=== PATIENT | male | born 1965 | race Caucasian/White ===

== ENCOUNTER 2019-10-19 02:47 | Inpatient (IN) ==
[2019-10-19 02:56] VITALS: BMI 33.0
--- NOTE | 2019-10-19 03:07 | DR.SOBA ---
HPI Time Seen Time Seen by Provider: 10/19/19 03:02 Primary Care Physician Primary Care Physician: Zane Goodman NP GPS HPI Comment HPI Comment: As below; he stopped his meds and just started back on Tuesday after going to Zane Goodman NP but is not on a diuretic; has h/o chf; occasional palpitations no cp. Complaints Chief Complaint:: [facility] DISPATCHED OUT TO PATIENT FOR DIFFICUTY BREATHING . PATIENT STATES " IT HAS BEEN GOING ON FOR 2WEEKS NOW THAT WHEN I LAY DOWN I FEEL LIKE IM DROWNING AND LOOSE MY BREATH. I HAVE TO GET UP AND MOVE AROUND TO CATCH MY BREATH." Reviewed Nurses Notes Reviewed: Yes Source History Provided: Patient and EMS Mode of Arrival Mode of Arrival: EMS Timing Onset of Chief Complaint: 10/05/19 PMH PMH Past Medical History: Yes Past Medical History: CHF, CVA and [place] Past Medical History Comment: DEFIB Past Surgical History: Yes Surgical History: Angioplasty/Stents and Ortho Surgery Family History History of Family Medical Conditions: No Social History Alcohol Use: None Do you use any recreational Drugs:: Yes (THC) Lives Where: Home infectious screening Have you traveled outside the country in the last 6 months?: No ROS Review of Systems Constitutional: See HPI, Malaise and Fatigue Eyes: No Symptoms Reported ENTM: No Symptoms Reported Respiratoy: See HPI (no cough or wheezing) Cardiovascular: See HPI and Palpitations Gastrointestinal/Abdominal: No Symptoms Reported Neurological: No Symptoms Reported Musculoskeletal: No Symptoms Reported Integumentary: No Symptoms Reported and Bruises Hematologic/Lymphatic: No Symptoms Reported Endocrine: No Symptoms Reported PE Vital Signs Vitals: Temperature 97.8 F Pulse Rate 92 Respiratory Rate 20 Blood Pressure 122/78 O2 Sat by Pulse Oximetry 99 General Limitations: No Limitations General Appearance: Alert, Anxious and Obese Head Head Exam: Normal Inspection and Atraumatic Eyes Eye exam: Normal Appearance Neck Neck Exam: Normal Inspection, Full ROM and Trachea Midline Chest Chest Inspection: Normal Inspection and Symmetric Chest Wall Rise Respiratory Respiratory Exam: Bilateral: Clear to Auscultation and Bilateral: Decreased Breath Sounds Cardiovascular Cardiovascular Exam: Regular Rate and Normal Rhythm Abdominal Exam Abdominal Exam: Normal Inspection, Normal Bowel Sounds and Soft Extremities Extremities Exam: Normal Inspection and Full ROM Back Back Exam: Normal Inspection and Full ROM Neurologic Neurological Exam: Alert, Oriented X3 and CN II-XII Intact Skin Skin Exam: Warm and Dry COURSE Reevaluation 1st: Unchanged (sitting up, sleepy) Consultation Called: 04:10 (s/w Dr Santana who accepts pt) ROR Labs Reviewed Laboratory Results Reviewed?: Yes Result Diagrams: 10/19/19 03:18 10/19/19 03:18 Laboratory: WBC 6.6 X10^3/uL (3.6-10.0) 10/19/19 03:18 RBC 4.54 X10^6/uL (4.7-6.0) L 10/19/19 03:18 Hgb 13.7 g/dL (13.5-18.0) 10/19/19 03:18 Hct 40.9 % (42.0-54.0) L 10/19/19 03:18 MCV 90.2 fL (80.0-100.0) 10/19/19 03:18 MCH 30.1 pg (27.0-34.0) 10/19/19 03:18 MCHC 33.4 g/dL (33.0-35.0) 10/19/19 03:18 RDW 14.6 % (11.6-16.5) 10/19/19 03:18 Plt Count 405 X10^3/uL (150.0-450.0) 10/19/19 03:18 MPV 7.2 fL (7.4-11.0) L 10/19/19 03:18 Neut % (Auto) 69.0 % (42.0-75.0) 10/19/19 03:18 Lymph % (Auto) 19.4 % (21.0-51.0) L 10/19/19 03:18 [place] % (Auto) 6.5 % (0.0-13.0) 10/19/19 03:18 Eos % (Auto) 2.3 % (0.9-2.9) 10/19/19 03:18 Baso % (Auto) 2.8 % (0.2-1.0) H 10/19/19 03:18 Neut # (Auto) 4.5 x10^3/uL (2.2-4.8) 10/19/19 03:18 Lymph # (Auto) 1.3 X10^3/uL (1.3-2.9) 10/19/19 03:18 [place] # (Auto) 0.4 x10^3/uL (0.3-0.8) 10/19/19 03:18 Eos # (Auto) 0.1 x10^3/uL (0.0-0.2) 10/19/19 03:18 Baso # (Auto) 0.2 X10^3/uL (0.0-0.1) H 10/19/19 03:18 Absolute Nucleated RBC 0.2 /100WBC 10/19/19 03:18 Sodium 136 mmol/L (136-145) 10/19/19 03:18 Corrected Sodium 136 mmol/L (136-145) 10/19/19 03:18 Potassium 4.2 mmol/L (3.5-5.1) 10/19/19 03:18 Chloride 105 mmol/L (98-107) 10/19/19 03:18 Carbon Dioxide 19.7 mmol/L (21-32) L 10/19/19 03:18 BUN 26 mg/dL (7-18) H 10/19/19 03:18 Creatinine 1.48 mg/dL (0.70-1.30) H 10/19/19 03:18 Est GFR (MDRD) Af Amer > 60 (>60) 10/19/19 03:18 Est GFR (MDRD) Non-Af 52 (>60) L 10/19/19 03:18 Glucose 118 mg/dL (65-99) H 10/19/19 03:18 Calcium 8.4 mg/dL (8.5-10.1) L 10/19/19 03:18 Corrected Calcium TNP 10/19/19 03:18 Total Bilirubin 0.80 mg/dL (0.2-1.0) 10/19/19 03:18 AST 26 Units/L (15-37) 10/19/19 03:18 ALT 24 Units/L (12-78) 10/19/19 03:18 Alkaline Phosphatase 81 Units/L (46-116) 10/19/19 03:18 Creatine Kinase 147 Units/L (39-308) 10/19/19 03:18 CK-MB (CK-2) 3.0 ng/mL (0-4.0) 10/19/19 03:18 CK/CKMB % Calc 2.0 % (<4) 10/19/19 03:18 Troponin I 0.07 ng/mL (0-1.5) 10/19/19 03:18 B-Natriuretic Peptide 1900 pg/mL (0-79) H* 10/19/19 03:18 Total Protein 7.4 g/dL (6.4-8.2) 10/19/19 03:18 Albumin 3.4 g/dL (3.4-5.0) 10/19/19 03:18 Globulin 4.0 g/dL (2.5-4.5) 10/19/19 03:18 Albumin/Globulin Ratio 0.9 Ratio (1.1-2.1) L 10/19/19 03:18 Other Results Comments: chf,cardiomegaly XRAY XRAY Interpreted by: Self Opioid Opioid Risk Tool Total: 0 Total Score Risk Category: Low Risk Copyright: Reyez predicting aberrant behaviors Diagnosis Discharge Problem: Acute dyspnea CHF (congestive heart failure) Qualifiers: Heart failure type: unspecified Heart failure chronicity: unspecified Qualified Code(s): I50.9 - Heart failure, unspecified CAD (coronary artery disease) Qualifiers: Coronary Disease-Associated Artery/Lesion type: [place] artery [place] vs. transplanted heart: [place] heart Associated angina: without angina Qualified Code(s): I25.10 - Atherosclerotic heart disease of [place] coronary artery without angina pectoris Renal failure Qualifiers: Renal failure chronicity: unspecified chronicity Qualified Code(s): N19 - Unspecified kidney failure Instructions Instructions: Heart Failure, [id number] Forms: Excuse From Work Patient Portal
[2019-10-19 03:26] LABS: BASOPHILS # (AUTO) 0.2 X10^3/uL (0.0-0.1); BASOPHILS % (AUTO) 2.8 % (0.2-1.0); EOSINOPHILS # (AUTO) 0.1 x10^3/uL (0.0-0.2); EOSINOPHILS % (AUTO) 2.3 % (0.9-2.9); HEMATOCRIT 40.9 % (42.0-54.0); HEMOGLOBIN 13.7 g/dL (13.5-18.0); LYMPHOCYTES # (AUTO) 1.3 X10^3/uL (1.3-2.9); LYMPHOCYTES % (AUTO) 19.4 % (21.0-51.0); MEAN CORPUSCULAR HEMOGLOBIN 30.1 pg (27.0-34.0); MEAN CORPUSCULAR HGB CONC 33.4 g/dL (33.0-35.0); MEAN CORPUSCULAR VOLUME 90.2 fL (80.0-100.0); MEAN PLATELET VOLUME 7.2 fL (7.4-11.0); MONOCYTES # (AUTO) 0.4 x10^3/uL (0.3-0.8); MONOCYTES % (AUTO) 6.5 % (0.0-13.0); NEUTROPHILS # (AUTO) 4.5 x10^3/uL (2.2-4.8); PLATELET COUNT 405 X10^3/uL (150.0-450.0); RED BLOOD COUNT 4.54 X10^6/uL (4.7-6.0); RED CELL DISTRIBUTION WIDTH 14.6 % (11.6-16.5); WHITE BLOOD COUNT 6.6 X10^3/uL (3.6-10.0)
[2019-10-19] MEDS ORDERED: LASIX IVP ONE ×4 (03:32→04:10)
[2019-10-19 03:41] LABS: BLOOD UREA NITROGEN 26 mg/dL (7-18); CALCIUM 8.4 mg/dL (8.5-10.1); CARBON DIOXIDE 19.7 mmol/L (21-32); CHLORIDE 105 mmol/L (98-107); COR NA(FOR HYPERGLY) 136 mmol/L (136-145); CREATININE 1.48 mg/dL (0.70-1.30); SODIUM 136 mmol/L (136-145); TROPONIN I 0.07 ng/mL (0-1.5); eGFR NON BLACK RACES 52 (>60)
[2019-10-19 03:46] LABS: ALANINE AMINOTRANSFERASE 24 Units/L (12-78); ALBUMIN 3.4 g/dL (3.4-5.0); ALKALINE PHOSPHATASE 81 Units/L (46-116); ASPARTATE AMINO TRANSFERASE 26 Units/L (15-37); CREATINE KINASE 147 Units/L (39-308); TOTAL PROTEIN 7.4 g/dL (6.4-8.2)
[2019-10-19] MEDS ORDERED: ZOFRAN INJ 4 MG VIAL IVP PRN (04:16)
[2019-10-19] MEDS ORDERED: TYLENOL 500 MG TAB EXTRA STRENGTH PO PRN (04:16)
--- NOTE | 2019-10-19 05:40 | RAD ---
STUDY: FRONTAL VIEW CHESTCOMPARISON: NoneHISTORY: SOBFINDINGS:Transvenous pacing wires are noted without evidence of lead wire fractures.No focal consolidation is seen.The heart size is enlarged with moderate degree of pulmonary edemaThe mediastinum is unremarkable.There is no evidence of pleural effusion or gross pneumothorax.Trachea is midline.IMPRESSION:1. NO FOCAL CONSOLIDATION SEEN.2. THE HEART SIZE IS ENLARGED WITH A MODERATE DEGREE OF PULMONARY EDEMA. CORRELATION WITH PATIENT BNP LEVELS MAY BE HELPFUL.Electronically signed by: Nato Wyatt (Oct 19, 2019 05:38:45)
[2019-10-19 08:29] LABS: BILIRUBIN,URINE NEGATIVE (NEGATIVE); BLOOD/HEMOGLOBIN,URINE NEGATIVE (NEGATIVE); GLUCOSE, URINE NEGATIVE (NEGATIVE); KETONES,URINE NEGATIVE (NEGATIVE); LEUKOCYTE ESTERASE ,URINE 1+ (NEGATIVE); NITRITES,URINE NEGATIVE (NEGATIVE); PROTEIN,URINE NEGATIVE (NEGATIVE); UROBILINOGEN,URINE NORMAL (NORMAL)
[2019-10-19 08:32] LABS: APPEARANCE,URINE CLEAR (CLEAR); COLOR,URINE YELLOW (YELLOW)
[2019-10-19 08:36] LABS: RBC,URINE NONE SEEN /HPF (0-3); SQUAMOUS EPITHELIAL CELL,UR RARE /HPF (NEGATIVE)
[2019-10-19 08:37] LABS: BACTERIA,URINE NEGATIVE /HPF (NEGATIVE)
[2019-10-19] MEDS ORDERED: LASIX IVP SCH (09:00)
[2019-10-19 09:08] LABS: CREATINE KINASE MB 3.4 ng/mL (0-4.0); TROPONIN I 0.05 ng/mL (0-1.5)
[2019-10-19] MEDS: ENTRESTO 24/26 MG TAB PO SCH ×2 (09:52→20:31)
[2019-10-19] MEDS: COREG TAB 6.25 MG PO SCH ×2 (09:52→20:31)
--- NOTE | 2019-10-19 10:49 | DR.H&P ---
H&P History & Physical for Day of: H&P Date: 10/19/19 Chief Complaint Chief Complaint: SOB Allergies Allergies Allergy/AdvReac Type Severity Reaction Status Date / Time No Known Drug Allergies Allergy Verified 10/19/19 02:52 History of Present Illness History of Present Illness: Mr. Mauricio is a 54y/o male with a PMH of CAD s/p PCI, CHF and HTN presents with worsening SOB for the last 2 weeks. He states he has not been on his medications until this past Tu. He was not taking any diuretics. He states his SOB has been worsening and it got really bad yesterday. He denies chest pain, N/V/D or abdominal pain. He was seeing finance clerk but has not in over a year. ED work-up: CXR: concerning for moderate pulmonary edema Received IV Lasix 40 mg x 2 Labs: Cr: 1.48, BNP: 1900 Trop: 0.07 Past Medical History Past Medical History: CHF, CVA and [place] Past Surgical History Surgical History: Angioplasty/Stents and Ortho Surgery Family History Family Medical History: Hypertension Social History Does patient currently use any type of tobacco product: Yes Have you used tobacco products in the last 12 months: Yes Type of Tobacco Use: Cigarettes Alcohol Use: None Drug Use: Marijuana Medications Home Medications: No Known Drug Allergies Allergy (Verified 10/19/19 02:52) CONTINUE taking the following medications atorvastatin 20 mg PO QHS 10/19/19 [History] carvedilol 6.25 mg PO BID 10/19/19 [History] prasugrel 10 mg PO HS 10/19/19 [History] sacubitril-valsartan [Entresto] 1 tab PO BID 10/19/19 [History] Labs Result Diagrams: 10/19/19 03:18 10/19/19 03:18 Labs: Laboratory WBC 6.6 X10^3/uL (3.6-10.0) 10/19/19 03:18 RBC 4.54 X10^6/uL (4.7-6.0) L 10/19/19 03:18 Hgb 13.7 g/dL (13.5-18.0) 10/19/19 03:18 Hct 40.9 % (42.0-54.0) L 10/19/19 03:18 MCV 90.2 fL (80.0-100.0) 10/19/19 03:18 MCH 30.1 pg (27.0-34.0) 10/19/19 03:18 MCHC 33.4 g/dL (33.0-35.0) 10/19/19 03:18 RDW 14.6 % (11.6-16.5) 10/19/19 03:18 Plt Count 405 X10^3/uL (150.0-450.0) 10/19/19 03:18 MPV 7.2 fL (7.4-11.0) L 10/19/19 03:18 Neut % (Auto) 69.0 % (42.0-75.0) 10/19/19 03:18 Lymph % (Auto) 19.4 % (21.0-51.0) L 10/19/19 03:18 [place] % (Auto) 6.5 % (0.0-13.0) 10/19/19 03:18 Eos % (Auto) 2.3 % (0.9-2.9) 10/19/19 03:18 Baso % (Auto) 2.8 % (0.2-1.0) H 10/19/19 03:18 Neut # (Auto) 4.5 x10^3/uL (2.2-4.8) 10/19/19 03:18 Lymph # (Auto) 1.3 X10^3/uL (1.3-2.9) 10/19/19 03:18 [place] # (Auto) 0.4 x10^3/uL (0.3-0.8) 10/19/19 03:18 Eos # (Auto) 0.1 x10^3/uL (0.0-0.2) 10/19/19 03:18 Baso # (Auto) 0.2 X10^3/uL (0.0-0.1) H 10/19/19 03:18 Absolute Nucleated RBC 0.2 /100WBC 10/19/19 03:18 Sodium 136 mmol/L (136-145) 10/19/19 03:18 Corrected Sodium 136 mmol/L (136-145) 10/19/19 03:18 Potassium 4.2 mmol/L (3.5-5.1) 10/19/19 03:18 Chloride 105 mmol/L (98-107) 10/19/19 03:18 Carbon Dioxide 19.7 mmol/L (21-32) L 10/19/19 03:18 BUN 26 mg/dL (7-18) H 10/19/19 03:18 Creatinine 1.48 mg/dL (0.70-1.30) H 10/19/19 03:18 Est GFR (MDRD) Af Amer > 60 (>60) 10/19/19 03:18 Est GFR (MDRD) Non-Af 52 (>60) L 10/19/19 03:18 Glucose 118 mg/dL (65-99) H 10/19/19 03:18 Calcium 8.4 mg/dL (8.5-10.1) L 10/19/19 03:18 Corrected Calcium TNP 10/19/19 03:18 Total Bilirubin 0.80 mg/dL (0.2-1.0) 10/19/19 03:18 AST 26 Units/L (15-37) 10/19/19 03:18 ALT 24 Units/L (12-78) 10/19/19 03:18 Alkaline Phosphatase 81 Units/L (46-116) 10/19/19 03:18 Creatine Kinase 171 Units/L (39-308) 10/19/19 08:08 CK-MB (CK-2) 3.4 ng/mL (0-4.0) 10/19/19 08:08 CK/CKMB % Calc 2.0 % (<4) 10/19/19 08:08 Troponin I 0.05 ng/mL (0-1.5) 10/19/19 08:08 B-Natriuretic Peptide 1900 pg/mL (0-79) H* 10/19/19 03:18 Total Protein 7.4 g/dL (6.4-8.2) 10/19/19 03:18 Albumin 3.4 g/dL (3.4-5.0) 10/19/19 03:18 Globulin 4.0 g/dL (2.5-4.5) 10/19/19 03:18 Albumin/Globulin Ratio 0.9 Ratio (1.1-2.1) L 10/19/19 03:18 Specimen Type Clean catch urine 10/19/19 08:05 Urine Color Yellow (YELLOW) 10/19/19 08:05 Urine Appearance Clear (CLEAR) 10/19/19 08:05 Urine pH 6.0 (5.0 - 8.0) 10/19/19 08:05 Ur Specific [place] 1.010 (1.000-1.030) 10/19/19 08:05 Urine Protein Negative (NEGATIVE) 10/19/19 08:05 Urine Glucose (UA) Negative (NEGATIVE) 10/19/19 08:05 Urine Ketones Negative (NEGATIVE) 10/19/19 08:05 Urine Occult Blood Negative (NEGATIVE) 10/19/19 08:05 Urine Nitrite Negative (NEGATIVE) 10/19/19 08:05 Urine Bilirubin Negative (NEGATIVE) 10/19/19 08:05 Urine Urobilinogen Normal (NORMAL) 10/19/19 08:05 Ur Leukocyte Esterase 1+ (NEGATIVE) 10/19/19 08:05 Urine RBC None seen /HPF (0-3) 10/19/19 08:05 Urine WBC 0-2 /HPF (0-5) 10/19/19 08:05 Ur Squamous Epith Cells Rare /HPF (NEGATIVE) 10/19/19 08:05 Urine Bacteria Negative /HPF (NEGATIVE) 10/19/19 08:05 Ur Culture Indicated? No/not indicated 10/19/19 08:05 Review of Systems Constitutional: No Symptoms Reported Eyes: No Symptoms Reported ENT: No Symptoms Reported Respiratory: Shortness of Breath and SOB with Excertion Cardiovascular: Orthopnea and Edema Gastrointestinal: No Symptoms Reported Genitourinary: No Symptoms Reported Musculoskeletal: No Symptoms Reported Skin: No Symptoms Reported Neurological: No Symptoms Reported Physical Exam Vital Signs: Temperature 97.5 F Pulse Rate [Brachial] 78 Pulse Rate 92 Respiratory Rate 22 Blood Pressure [Right Arm] 133/95 Blood Pressure 122/78 O2 Sat by Pulse Oximetry 100 Oriented: Normal Eyes: Normal Throat: Normal Respiratory: RLL Rales and LLL Rales Cardiovascular: Normal and Edema (slight LE edema ) Auscultation: Bowel Sounds: Normal Palpation: Normal Tenderness: Normal Skin: Normal Musculoskeletal: Normal Psychiatric: Normal Mood Description: Calm Affect: Flat Speech Pattern: Clear and Appropriate Assessment/Plan (1) Acute exacerbation of CHF (congestive heart failure): Qualifiers: Heart failure type: unspecified Qualified Code(s): I50.9 - Heart failure, unspecified Status: Acute Plan: Dyspnea, CXR concerning for pulmonary edema, BNP elevated Continue telemetry Continue IV Lasix Echo pending Strict I/Os Continue prasugrel, statin, coreg, entresto (2) CAD (coronary artery disease): Qualifiers: Associated angina: without angina Coronary Disease-Associated Artery/Lesion type: [place] artery [place] vs. transplanted heart: [place] heart Qualified Code(s): I25.10 - Atherosclerotic heart disease of [place] coronary ar [place] without angina pectoris Status: Acute Plan: PCI in 2014 Continue home medications Trop: 0.07, 0.05, one more set pending (3) SAWYER (acute kidney injury): Status: Acute Plan: Cr: 1.48 Monitor AM labs (4) HTN (hypertension): Status: Acute Plan: Continue home medications Review H&P Reviewed: Yes Patient was examined?: Yes
[2019-10-19] MEDS: LOVENOX INJ 40 MG SYR SC SCH (12:57)
[2019-10-19] MEDS: LIPITOR TAB 20 MG PO SCH ×2 (12:57→20:32)
[2019-10-19 15:21] LABS: CKMB % 2.4 % (<4); CREATINE KINASE MB 3.4 ng/mL (0-4.0); TROPONIN I 0.07 ng/mL (0-1.5)
[2019-10-19] MEDS ORDERED: PRASUGREL 10 MG PO SCH (21:00)
[2019-10-20 06:51] LABS: BASOPHILS # (AUTO) 0.2 X10^3/uL (0.0-0.1); BASOPHILS % (AUTO) 2.7 % (0.2-1.0); EOSINOPHILS # (AUTO) 0.2 x10^3/uL (0.0-0.2); EOSINOPHILS % (AUTO) 3.7 % (0.9-2.9); HEMATOCRIT 42.1 % (42.0-54.0); LYMPHOCYTES # (AUTO) 1.6 X10^3/uL (1.3-2.9); LYMPHOCYTES % (AUTO) 24.1 % (21.0-51.0); MEAN CORPUSCULAR HEMOGLOBIN 30.2 pg (27.0-34.0); MEAN CORPUSCULAR HGB CONC 33.3 g/dL (33.0-35.0); MEAN CORPUSCULAR VOLUME 90.5 fL (80.0-100.0); MEAN PLATELET VOLUME 7.5 fL (7.4-11.0); MONOCYTES # (AUTO) 0.6 x10^3/uL (0.3-0.8); MONOCYTES % (AUTO) 9.6 % (0.0-13.0); NEUTROPHILS # (AUTO) 3.9 x10^3/uL (2.2-4.8); NEUTROPHILS % (AUTO) 59.9 % (42.0-75.0); PLATELET COUNT 400 X10^3/uL (150.0-450.0); RED BLOOD COUNT 4.65 X10^6/uL (4.7-6.0); WHITE BLOOD COUNT 6.5 X10^3/uL (3.6-10.0)
[2019-10-20 07:07] LABS: ALANINE AMINOTRANSFERASE 23 Units/L (12-78); ALBUMIN 3.3 g/dL (3.4-5.0); ALKALINE PHOSPHATASE 76 Units/L (46-116); ASPARTATE AMINO TRANSFERASE 21 Units/L (15-37); BLOOD UREA NITROGEN 23 mg/dL (7-18); CALCIUM 8.6 mg/dL (8.5-10.1); CARBON DIOXIDE 26.7 mmol/L (21-32); CHLORIDE 103 mmol/L (98-107); COR CA(FOR HYPOALB) 9.2 mg/dL (8.5-10.1); SODIUM 139 mmol/L (136-145); TOTAL PROTEIN 7.3 g/dL (6.4-8.2); eGFR NON BLACK RACES 56 (>60)
[2019-10-20] MEDS ORDERED: LASIX IVP SCH (09:00)
[2019-10-20] MEDS: ENTRESTO 24/26 MG TAB PO SCH (09:04)
[2019-10-20] MEDS: LOVENOX INJ 40 MG SYR SC SCH (09:04)
[2019-10-20] MEDS: COREG TAB 6.25 MG PO SCH (09:04)
--- NOTE | 2019-10-20 09:18 | PCM.PROG ---
Progress Note Progress Note for Day of Date of Exam: 10/20/19 Past Medical Family Social History Past Med/Fam/Surg Hx: No changes since H&P Allergies: Allergies No Known Drug Allergies Allergy (Verified 10/19/19 02:52) Review of Systems ROS: No change since H&P Vital Signs and I&O's Vital Signs: Temperature 98.0 F Pulse Rate [Brachial] 61 Pulse Rate 92 Respiratory Rate 15 Blood Pressure [Right Arm] 105/65 Blood Pressure 122/78 O2 Sat by Pulse Oximetry 96 Intake and Output: Intake & Output 10/17/19 10/18/19 10/19/19 10/20/19 23:59 23:59 23:59 23:59 Intake Total 2340 / 2340 450 / 450 Output Total 6375 / 6375 1450 / 1450 Balance -4035 / -4035 -1000 / -1000 Physical Exam Oriented: Normal Eyes: Normal Throat: Normal Respiratory: Rales Cardiovascular: Normal and Edema (slight LE edema ) Auscultation: Bowel Sounds: Normal Tenderness: Normal Skin: Normal Musculoskeletal: Normal Psychiatric: Normal Mood Description: Calm Affect: Flat Speech Pattern: Appropriate and Unclear Laboratory and Diagnostics Result Diagrams: 10/20/19 06:13 10/20/19 06:13 Labs: Laboratory WBC 6.5 X10^3/uL (3.6-10.0) 10/20/19 06:13 RBC 4.65 X10^6/uL (4.7-6.0) L 10/20/19 06:13 Hgb 14.0 g/dL (13.5-18.0) 10/20/19 06:13 Hct 42.1 % (42.0-54.0) 10/20/19 06:13 MCV 90.5 fL (80.0-100.0) 10/20/19 06:13 MCH 30.2 pg (27.0-34.0) 10/20/19 06:13 MCHC 33.3 g/dL (33.0-35.0) 10/20/19 06:13 RDW 15.0 % (11.6-16.5) 10/20/19 06:13 Plt Count 400 X10^3/uL (150.0-450.0) 10/20/19 06:13 MPV 7.5 fL (7.4-11.0) 10/20/19 06:13 Neut % (Auto) 59.9 % (42.0-75.0) 10/20/19 06:13 Lymph % (Auto) 24.1 % (21.0-51.0) 10/20/19 06:13 [place] % (Auto) 9.6 % (0.0-13.0) 10/20/19 06:13 Eos % (Auto) 3.7 % (0.9-2.9) H 10/20/19 06:13 Baso % (Auto) 2.7 % (0.2-1.0) H 10/20/19 06:13 Neut # (Auto) 3.9 x10^3/uL (2.2-4.8) 10/20/19 06:13 Lymph # (Auto) 1.6 X10^3/uL (1.3-2.9) 10/20/19 06:13 [place] # (Auto) 0.6 x10^3/uL (0.3-0.8) 10/20/19 06:13 Eos # (Auto) 0.2 x10^3/uL (0.0-0.2) 10/20/19 06:13 Baso # (Auto) 0.2 X10^3/uL (0.0-0.1) H 10/20/19 06:13 Absolute Nucleated RBC 0.1 /100WBC 10/20/19 06:13 Sodium 139 mmol/L (136-145) 10/20/19 06:13 Corrected Sodium TNP 10/20/19 06:13 Potassium 3.9 mmol/L (3.5-5.1) 10/20/19 06:13 Chloride 103 mmol/L (98-107) 10/20/19 06:13 Carbon Dioxide 26.7 mmol/L (21-32) 10/20/19 06:13 BUN 23 mg/dL (7-18) H 10/20/19 06:13 Creatinine 1.40 mg/dL (0.70-1.30) H 10/20/19 06:13 Est GFR (MDRD) Af Amer > 60 (>60) 10/20/19 06:13 Est GFR (MDRD) Non-Af 56 (>60) L 10/20/19 06:13 Glucose 99 mg/dL (65-99) 10/20/19 06:13 Calcium 8.6 mg/dL (8.5-10.1) 10/20/19 06:13 Corrected Calcium 9.2 mg/dL (8.5-10.1) 10/20/19 06:13 Total Bilirubin 1.10 mg/dL (0.2-1.0) H 10/20/19 06:13 AST 21 Units/L (15-37) 10/20/19 06:13 ALT 23 Units/L (12-78) 10/20/19 06:13 Alkaline Phosphatase 76 Units/L (46-116) 10/20/19 06:13 Creatine Kinase 141 Units/L (39-308) 10/19/19 14:15 CK-MB (CK-2) 3.4 ng/mL (0-4.0) 10/19/19 14:15 CK/CKMB % Calc 2.4 % (<4) 10/19/19 14:15 Troponin I 0.07 ng/mL (0-1.5) 10/19/19 14:15 B-Natriuretic Peptide 1900 pg/mL (0-79) H* 10/19/19 03:18 Total Protein 7.3 g/dL (6.4-8.2) 10/20/19 06:13 Albumin 3.3 g/dL (3.4-5.0) L 10/20/19 06:13 Globulin 4.0 g/dL (2.5-4.5) 10/20/19 06:13 Albumin/Globulin Ratio 0.8 Ratio (1.1-2.1) L 10/20/19 06:13 Specimen Type Clean catch urine 10/19/19 08:05 Urine Color Yellow (YELLOW) 10/19/19 08:05 Urine Appearance Clear (CLEAR) 10/19/19 08:05 Urine pH 6.0 (5.0 - 8.0) 10/19/19 08:05 Ur Specific [place] 1.010 (1.000-1.030) 10/19/19 08:05 Urine Protein Negative (NEGATIVE) 10/19/19 08:05 Urine Glucose (UA) Negative (NEGATIVE) 10/19/19 08:05 Urine Ketones Negative (NEGATIVE) 10/19/19 08:05 Urine Occult Blood Negative (NEGATIVE) 10/19/19 08:05 Urine Nitrite Negative (NEGATIVE) 10/19/19 08:05 Urine Bilirubin Negative (NEGATIVE) 10/19/19 08:05 Urine Urobilinogen Normal (NORMAL) 10/19/19 08:05 Ur Leukocyte Esterase 1+ (NEGATIVE) 10/19/19 08:05 Urine RBC None seen /HPF (0-3) 10/19/19 08:05 Urine WBC 0-2 /HPF (0-5) 10/19/19 08:05 Ur Squamous Epith Cells Rare /HPF (NEGATIVE) 10/19/19 08:05 Urine Bacteria Negative /HPF (NEGATIVE) 10/19/19 08:05 Ur Culture Indicated? No/not indicated 10/19/19 08:05 Plan (1) Acute exacerbation of CHF (congestive heart failure): Status: Acute Qualifiers: Heart failure type: unspecified Qualified Code(s): I50.9 - Heart failure, unspecified Plan: Dyspnea, CXR concerning for pulmonary edema, BNP elevated Continue telemetry Continue IV Lasix Echo: dilated cardiomyopathy, decreased global wall motion, EF 24%, mod-severe pulm HTN Strict I/Os Continue prasugrel, statin, coreg, entresto. Will consider adding low-dose aldactone if BP stable. Cardiology outpatient follow-up (2) CAD (coronary artery disease): Status: Acute Qualifiers: Associated angina: without angina Coronary Disease-Associated Artery/Lesion type: [place] artery [place] vs. transplanted heart: [place] heart Qualified Code(s): I25.10 - Atherosclerotic heart disease of [place] coronary artery without angina pectoris Plan: PCI in 2014 Continue home medications Trop: 0.07, 0.05, one more set pending (3) SAWYER (acute kidney injury): Status: Acute Plan: Cr: 1.48 Monitor AM labs (4) HTN (hypertension): Status: Acute Plan: Continue home medications
--- NOTE | 2019-10-20 09:56 | W.DIS.FURT ---
Summary of Discharge Discharge Summary of Date Date of Exam: 10/20/19 Admission Date Date of Admission: 10/19/19 Admission Diagnosis Hospital Course: Mr. Mauricio is a 54y/o male with a PMH of CAD s/p PCI, dilated cardiomyopathy s/p AICD and HTN presents with worsening SOB for the last 2 weeks. He states he has not been on his medications until this past . He was not taking any diuretics. He states his SOB has been worsening and it got really bad yesterday. He denies chest pain, N/V/D or abdominal pain. He was seeing brush or broom cutter but has not in over a year. CXR: concerning for moderate pulmonary edema He received IV Lasix 40 mg x 2 . Labs: Cr: 1.48, BNP: 1900 Trop: 0.07. Repeat troponins remained stable. Patient's breathing improved with diuresis. He remained on room air. Patient denied any chest pain. ECHO showed EF 24% with moderate to severe pulmonary hypertension. Patient was stable for discharge. Lasix 40 mg oral was added. He needs to follow up with PCP in [address] Fisher in 2 weeks. Vital Signs: Vital Signs (72 hours) 10/19/19 02:50 10/19/19 03:30 10/19/19 04:31 Temperature 97.8 F Pulse Rate 90 92 H Pulse Rate [Brachial] 90 Respiratory Rate 20 20 20 Blood Pressure 136/94 122/78 Blood Pressure [Right Arm] 122/78 O2 Sat by Pulse Oximetry 96 99 99 10/19/19 08:00 10/19/19 12:00 10/19/19 16:00 Temperature 97.5 F L 98.1 F 98.0 F Pulse Rate Pulse Rate [Brachial] 78 90 78 Respiratory Rate 22 21 20 Blood Pressure Blood Pressure [Right Arm] 133/95 115/76 119/81 O2 Sat by Pulse Oximetry 100 97 98 10/19/19 20:00 10/20/19 00:00 10/20/19 04:00 Temperature 98.2 F 97.8 F 98.0 F Pulse Rate Pulse Rate [Brachial] 70 70 61 Respiratory Rate 24 24 15 Blood Pressure Blood Pressure [Right Arm] 135/81 123/79 105/65 O2 Sat by Pulse Oximetry 98 98 96 Labs: Laboratory Last Values WBC 6.5 X10^3/uL (3.6-10.0) 02/08/20 06:13 RBC 4.65 X10^6/uL (4.7-6.0) L 10/20/19 06:13 Hgb 14.0 g/dL (13.5-18.0) 10/20/19 06:13 Hct 42.1 % (42.0-54.0) 10/20/19 06:13 MCV 90.5 fL (80.0-100.0) 10/20/19 06:13 MCH 30.2 pg (27.0-34.0) 10/20/19 06:13 MCHC 33.3 g/dL (33.0-35.0) 10/20/19 06:13 RDW 15.0 % (11.6-16.5) 10/20/19 06:13 Plt Count 400 X10^3/uL (150.0-450.0) 10/20/19 06:13 MPV 7.5 fL (7.4-11.0) 10/20/19 06:13 Neut % (Auto) 59.9 % (42.0-75.0) 10/20/19 06:13 Lymph % (Auto) 24.1 % (21.0-51.0) 10/20/19 06:13 [place] % (Auto) 9.6 % (0.0-13.0) 10/20/19 06:13 Eos % (Auto) 3.7 % (0.9-2.9) H 10/20/19 06:13 Baso % (Auto) 2.7 % (0.2-1.0) H 10/20/19 06:13 Neut # (Auto) 3.9 x10^3/uL (2.2-4.8) 10/20/19 06:13 Lymph # (Auto) 1.6 X10^3/uL (1.3-2.9) 10/20/19 06:13 [place] # (Auto) 0.6 x10^3/uL (0.3-0.8) 10/20/19 06:13 Eos # (Auto) 0.2 x10^3/uL (0.0-0.2) 10/20/19 06:13 Baso # (Auto) 0.2 X10^3/uL (0.0-0.1) H 10/20/19 06:13 Absolute Nucleated RBC 0.1 /100WBC 10/20/19 06:13 Sodium 139 mmol/L (136-145) 10/20/19 06:13 Corrected Sodium TNP 10/20/19 06:13 Potassium 3.9 mmol/L (3.5-5.1) 10/20/19 06:13 Chloride 103 mmol/L (98-107) 10/20/19 06:13 Carbon Dioxide 26.7 mmol/L (21-32) 10/20/19 06:13 BUN 23 mg/dL (7-18) H 10/20/19 06:13 Creatinine 1.40 mg/dL (0.70-1.30) H 10/20/19 06:13 Est GFR (MDRD) Af Amer > 60 (>60) 10/20/19 06:13 Est GFR (MDRD) Non-Af 56 (>60) L 10/20/19 06:13 Glucose 99 mg/dL (65-99) 10/20/19 06:13 Calcium 8.6 mg/dL (8.5-10.1) 10/20/19 06:13 Corrected Calcium 9.2 mg/dL (8.5-10.1) 10/20/19 06:13 Total Bilirubin 1.10 mg/dL (0.2-1.0) H 10/20/19 06:13 AST 21 Units/L (15-37) 10/20/19 06:13 ALT 23 Units/L (12-78) 10/20/19 06:13 Alkaline Phosphatase 76 Units/L (46-116) 10/20/19 06:13 Creatine Kinase 141 Units/L (39-308) 10/19/19 14:15 CK-MB (CK-2) 3.4 ng/mL (0-4.0) 10/19/19 14:15 CK/CKMB % Calc 2.4 % (<4) 10/19/19 14:15 Troponin I 0.07 ng/mL (0-1.5) 10/19/19 14:15 B-Natriuretic Peptide 1900 pg/mL (0-79) H* 10/19/19 03:18 Total Protein 7.3 g/dL (6.4-8.2) 10/20/19 06:13 Albumin 3.3 g/dL (3.4-5.0) L 10/20/19 06:13 Globulin 4.0 g/dL (2.5-4.5) 10/20/19 06:13 Albumin/Globulin Ratio 0.8 Ratio (1.1-2.1) L 10/20/19 06:13 Specimen Type Clean catch urine 10/19/19 08:05 Urine Color Yellow (YELLOW) 10/19/19 08:05 Urine Appearance Clear (CLEAR) 10/19/19 08:05 Urine pH 6.0 (5.0 - 8.0) 10/19/19 08:05 Ur Specific [place] 1.010 (1.000-1.030) 10/19/19 08:05 Urine Protein Negative (NEGATIVE) 10/19/19 08:05 Urine Glucose (UA) Negative (NEGATIVE) 10/19/19 08:05 Urine Ketones Negative (NEGATIVE) 10/19/19 08:05 Urine Occult Blood Negative (NEGATIVE) 10/19/19 08:05 Urine Nitrite Negative (NEGATIVE) 10/19/19 08:05 Urine Bilirubin Negative (NEGATIVE) 10/19/19 08:05 Urine Urobilinogen Normal (NORMAL) 10/19/19 08:05 Ur Leukocyte Esterase 1+ (NEGATIVE) 10/19/19 08:05 Urine RBC None seen /HPF (0-3) 10/19/19 08:05 Urine WBC 0-2 /HPF (0-5) 10/19/19 08:05 Ur Squamous Epith Cells Rare /HPF (NEGATIVE) 10/19/19 08:05 Urine Bacteria Negative /HPF (NEGATIVE) 10/19/19 08:05 Ur Culture Indicated? No/not indicated 10/19/19 08:05 Reason For Visit: CHG,RENAL FAIL, ORTHOPNEA Discharge Date Discharge Date: 10/20/19 Discharge Diagnosis All Active Problems (Updated 10/21/19 @ 11:21 by Danitza Santana) AICD (automatic cardioverter/defibrillator) present (Chronic) Moderate to severe pulmonary hypertension (Chronic) Dilated cardiomyopathy (Chronic) HTN (hypertension) (Acute) SAWYER (acute kidney injury) (Acute) Acute exacerbation of CHF (congestive heart failure) (Acute) CHF (congestive heart failure) (Chronic) Acute dyspnea (Acute) CAD (coronary artery disease) (Chronic) Renal failure (Acute) Plan of Treatment: Continue with present treatment and follow up plan. Pt is to keep follow up appointment as instructed and take medications as ordered. Discharge Medications Discharge Medications: No Known Drug Allergies Allergy (Verified 10/19/19 02:52) CONTINUE taking the following medications Entresto 1 tab PO BID 10/19/19 [History] atorvastatin 20 mg PO QHS 10/19/19 [History] carvedilol 6.25 mg PO BID 10/19/19 [History] prasugrel 10 mg PO HS 10/19/19 [History] New Prescriptions furosemide 40 mg PO QAM 30 Days #30 tab 10/20/19 [Rx] Follow up and Referral Follow Up: 1 Week (PCP) 2 Weeks (Cardiology ) Discharge Disposition Discharge Disposition: Home
[2019-10-20 11:05] VITALS: BP 126/60
== END 2019-10-20 11:35 | disposition home or self-care (01) | DRG 292 ==
LOC: ER 02:48 → MED/SURG 02:48 → OBSVTOIN 04:14 → MED/SURG 04:38
PROVIDERS: ADMIT Internal Medicine; ATTEND Internal Medicine
DX: N17.8 Other acute kidney failure; I50.9 Heart failure, unspecified; I25.10 Atherosclerotic heart disease of native coronary artery without angina pectoris; I11.0 Hypertensive heart disease with heart failure; R06.02 Shortness of breath
CPT/HCPCS: 36415; 71010; 71045; 80053; 81001; 82550; 82553; 83880; 84484; 85025; 93005; 93306; 94760; 96365; 96374; 96375; 97161; 97165; 99284; A4216; J1650; J1940

== ENCOUNTER 2021-05-10 10:50 | Inpatient (IN) ==
[2021-05-10 11:11] VITALS: BMI 36.9
--- NOTE | 2021-05-10 12:15 | DR.URIAD ---
HPI Time Seen Time Seen by Provider: 05/10/21 12:08 PCP Primary Care Physician: BROOKS HPI Comment HPI Comment: PATIENT IS 56YR OLD MALE IN ER WITH INCREASING SOB TIMES FEW DAYS. WORSE TODAY. PATIENT IS ALSO HAVING CHEST DISCOMFORT. SYMTOMS ARE GDETTING WORSE. NO FEVER OR DYSURIA.CONCERN ABOUT COVID 19 VIRUS INFECTION. Complaint Chief Complaint Doctors Comments: INCREASING SOB Chief Complaint:: "I CAN'T HARDLY GET MY BREATH. I GET LIKE THIS SOMETIMES AND I HAVE TO GO SOMEWHERE. IT MAY BE COVID." COVID-19 Coronavirus risk:travel/contact w/high risk person: No Has patient experienced Coronavirus symptoms: No Reviewed Nurses Notes Reviewed: Yes Source History Provided: Patient Mode of Arrival Mode of Arrival: Ambulatory Timing Onset of Chief Complaint: 05/03/21 Context Recent Treated Infections: None History of Respiratory: None Quality Quality of Cough: Nonproductive Rhinorrhea: Clear Shortness of Breath: Moderate Associated Signs and Symptoms Other Signs and Symptoms: Cough, Shortness of Breath and URI PMH PMH Past Medical History: Yes Past Medical History: CHF, COPD and MS Past Surgical History: Yes Surgical History: Angioplasty/Stents and Other Family History History of Family Medical Conditions: Yes Family Medical History: MS, Coronary Artery Disease and Hypertension Social History Does patient currently use any type of tobacco product: Yes Have you used tobacco products in the last 12 months: Yes Type of Tobacco Use: Cigarettes How many years tobacco product used: 40 Does any household member use tobacco: Yes Alcohol Use: None Do you use any recreational Drugs:: Yes Lives With: Family Lives Where: Home Infectious screening In the last 2 months have you had wt loss of >10#?: NO Have you had fever, night sweats or hemotysis?: No Have you traveled outside the country in the last 6 months?: No Isolation: Droplet ROS Review of Systems Constitutional: No Symptoms Reported and See HPI; negative Fever, Weakness and Fatigue Eyes: No Symptoms Reported and See HPI ENTM: No Symptoms Reported, See HPI and Nose Discharge; negative Nose Congestion Respiratoy: No Symptoms Reported, See HPI, Non-Productive Cough and Short of Breath; negative Wheezing Cardiovascular: No Symptoms Reported and See HPI; negative Chest Pain Gastrointestinal/Abdominal: No Symptoms Reported and See HPI; negative Abdominal Pain, Diarrhea and Vomiting Genitourinary: No Symptoms Reported and See HPI; negative Dysuria, Frequency and Hematuria Neurological: No Symptoms Reported and See HPI; negative Headache, Weakness and Dizziness Musculoskeletal: No Symptoms Reported and See HPI; negative Back Pain and Muscle Pain Integumentary: No Symptoms Reported and See HPI; negative Change in Color, Rash and Juandice Hematologic/Lymphatic: No Symptoms Reported and See HPI; negative Easy Bruising Endocrine: No Symptoms Reported and See HPI; negative Increased Thirst and Increased Urine Psychiatric: No Symptoms Reported and See HPI All Other Systems: Reviewed and Negative PE Vital Signs Vitals: Temperature 97.7 F Pulse Rate [Right Brachial] 80 Pulse Rate 92 Respiratory Rate 22 Blood Pressure [Right Arm] 130/94 Blood Pressure 128/92 O2 Sat by Pulse Oximetry 95 General Limitations: No Limitations General Appearance: Alert and In No Apparent Distress Head Head Exam: Normal Inspection Eyes Eye exam: Normal Appearance and PERRL; negative Scleral Icterus and Conjunctival Injection ENT ENT Exam: Normal Exam, Normal Oropharynx, Normal External Ear Exam and TM's No rmal Bilaterally External Ear Exam: Normal External Inspection; negative Mastoid Tenderness TM/Canal Exam: Bilateral: Normal Nose Exam: Normal Nose Exam Mouth Exam: Normal Inspection; negative Lip Swelling and Tongue Swelling Throat Exam: Normal Inspection, Tonsillar Erythema, Tonsillomegaly and Tonsillar Exudate Neck Neck Exam: Normal Inspection and Trachea Midline; negative Tenderness and Lymphadenopathy Chest Chest Inspection: Normal Inspection and Symmetric Chest Wall Rise; negative Tenderness Respiratory Respiratory Exam: Normal Lung Sounds Bilat; negative Accessory Muscle Use, Chest Wall Tenderness and Respiratory Distress Respiratory Exam: Bilateral: Clear to Auscultation Cardiovascular Cardiovascular Exam: Regular Rate, Normal Rhythm and Normal Heart Sounds; neg ative Systolic Murmur and Diastolic Murmur Abdominal Exam Abdominal Exam: Normal Inspection, Normal Bowel Sounds and Soft; negative Tenderness Extremeties Extremities Exam: Normal Inspection and Normal Capillary Refill Back Back Exam: Normal Inspection; negative (R) CVA Tenderness and (L) CVA Tenderness Neurologic Neurological Exam: Alert and Oriented X3; negative Motor Sensory Deficit Psychiatric Psychiatric Exam: Normal Affect and Normal Mood Skin Skin Exam: Warm, Dry, Intact and Normal Color MDM Differential Diagnosis Differential Diagnosis: Influenza A, Influenza B, Otitis media, Streptococcal pharyngitis, Viral pharyngitis, Pneumonia, Sinsusitis and URI COURSE Treatment Treatment: SEE ORDER. LASIX 40MG IS. PATIENT DIURESING, STILL SOB. DUO NEB IN ER. PATIENT IS IN CONGESTIVE HEART FAILURE AND IS HAVING PERICARDITIS. HE IS STILL SOB. WILL ADMIT TO HOSPITAL FOR FURTHER MANAGEMENT. Consultation Consultation Comments: DISCUSSED PATIENT WITH DR. KRUGER. HE WILL ADMIT PATIENT. Education/Counseling Education/Counseling: Patient Educated On: Diagnosis ROR Labs Reviewed Laboratory Results Reviewed?: Yes Result Diagrams: 05/10/21 12:47 05/10/21 12:47 Laboratory: WBC 7.6 X10^3/uL (3.6-10.0) 05/10/21 12:47 RBC 4.77 X10^6/uL (4.7-6.0) 05/10/21 12:47 Hgb 14.3 g/dL (13.5-18.0) 05/10/21 12:47 Hct 43.3 % (42.0-54.0) 05/10/21 12:47 MCV 90.7 fL (80.0-100.0) 05/10/21 12:47 MCH 30.0 pg (27.0-34.0) 05/10/21 12:47 MCHC 33.0 g/dL (33.0-35.0) 05/10/21 12:47 RDW 15.0 % (11.6-16.5) 05/10/21 12:47 Plt Count 314 X10^3/uL (150.0-450.0) 05/10/21 12:47 MPV 7.5 fL (7.4-11.0) 05/10/21 12:47 Neut % (Auto) 75.9 % (42.0-75.0) H 05/10/21 12:47 Lymph % (Auto) 13.3 % (21.0-51.0) L 05/10/21 12:47 [place] % (Auto) 8.4 % (0.0-13.0) 05/10/21 12:47 Eos % (Auto) 1.2 % (0.9-2.9) 05/10/21 12:47 Baso % (Auto) 1.2 % (0.2-1.0) H 05/10/21 12:47 Neut # (Auto) 5.7 x10^3/uL (2.2-4.8) H 05/10/21 12:47 Lymph # (Auto) 1.0 X10^3/uL (1.3-2.9) L 05/10/21 12:47 [place] # (Auto) 0.6 x10^3/uL (0.3-0.8) 05/10/21 12:47 Eos # (Auto) 0.1 x10^3/uL (0.0-0.2) 05/10/21 12:47 Baso # (Auto) 0.1 X10^3/uL (0.0-0.1) 05/10/21 12:47 Absolute Nucleated RBC 0.1 /100WBC 05/10/21 12:47 D-Dimer 0.30 ug/ml (0.0-0.57) 05/10/21 12:47 Sample Site Rrad 05/10/21 14:23 ABG pH 7.480 (7.35-7.45) H 05/10/21 14:23 ABG pCO2 30.0 mmHg (35.0-45.0) L 05/10/21 14:23 ABG pO2 77.0 mmHg (80.0-100.0) L 05/10/21 14:23 ABG HCO3 22.3 mmol/L (22-26) 05/10/21 14:23 ABG O2 Saturation 96.0 % (90-100) 05/10/21 14:23 ABG Base Excess -0.4 mmol/L (-2.0-2.0) 05/10/21 14:23 Kishan Test Pos 05/10/21 14:23 A-a Gradient 35.0 mmHg 05/10/21 14:23 FiO2 21.0 05/10/21 14:23 Blood Gas Comments Pt tyler well elj 05/10/21 14:23 Sodium 137 mmol/L (136-145) 05/10/21 12:47 Corrected Sodium 138 mmol/L (136-145) 05/10/21 12:47 Potassium 3.9 mmol/L (3.5-5.1) 05/10/21 12:47 Chloride 103 mmol/L (98-107) 05/10/21 12:47 Carbon Dioxide 25.4 mmol/L (21-32) 05/10/21 12:47 BUN 21 mg/dL (7-18) H 05/10/21 12:47 Creatinine 1.29 mg/dL (0.70-1.30) 05/10/21 12:47 Est GFR (MDRD) Af Amer > 60 (>60) 05/10/21 12:47 Est GFR (MDRD) Non-Af > 60 (>60) 05/10/21 12:47 Glucose 126 mg/dL (65-99) H 05/10/21 12:47 Calcium 8.7 mg/dL (8.5-10.1) 05/10/21 12:47 Corrected Calcium TNP 05/10/21 12:47 Total Bilirubin 0.80 mg/dL (0.2-1.0) 05/10/21 12:47 AST 24 Units/L (15-37) 05/10/21 12:47 ALT 22 Units/L (12-78) 05/10/21 12:47 Alkaline Phosphatase 78 Units/L (46-116) 05/10/21 12:47 Creatine Kinase 177 Units/L (39-308) 05/10/21 12:47 CK-MB (CK-2) 3.8 ng/mL (0-4.0) 05/10/21 12:47 CK/CKMB % Calc 2.2 % (<4) 05/10/21 12:47 Troponin I 0.08 ng/mL (0-1.5) 05/10/21 14:57 B-Natriuretic Peptide 502 pg/mL (0-79) H* 05/10/21 12:47 Total Protein 7.4 g/dL (6.4-8.2) 05/10/21 12:47 Albumin 3.6 g/dL (3.4-5.0) 05/10/21 12:47 Globulin 3.8 g/dL (2.5-4.5) 05/10/21 12:47 Albumin/Globulin Ratio 0.9 Ratio (1.1-2.1) L 05/10/21 12:47 SARS CoV-2 RNA Rapid KORTNEY Negative (NEGATIVE) 05/10/21 12:48 XRAY XRAY Interpreted by: Radiologist (REPORT NOTED.) and Self Opioid Opioid Risk Tool Age (Ben box if 16-45): No History of Preadolescent Sexual Abuse: No Total: 0 Total Score Risk Category: Low Risk Copyright: Dereje MCGRATH predicting aberrant behaviors Diagnosis Discharge Problem: Acute dyspnea CHF (congestive heart failure) Qualifiers: Heart failure type: combined systolic and diastolic Heart failure chronicity: acute on chronic Qualified Code(s): I50.43 - Acute on chronic combined systolic (congestive) and diastolic (congestive) heart failure Pericarditis Qualifiers: Pericarditis type: unspecified type Chronicity: acute Qualified Code(s): I30.9 - Acute pericarditis, unspecified Chest pain Qualifiers: Chest pain type: precordial pain Qualified Code(s): R07.2 - Precordial pain
[2021-05-10 13:01] LABS: BASOPHILS # (AUTO) 0.1 X10^3/uL (0.0-0.1); BASOPHILS % (AUTO) 1.2 % (0.2-1.0); EOSINOPHILS # (AUTO) 0.1 x10^3/uL (0.0-0.2); EOSINOPHILS % (AUTO) 1.2 % (0.9-2.9); HEMATOCRIT 43.3 % (42.0-54.0); HEMOGLOBIN 14.3 g/dL (13.5-18.0); LYMPHOCYTES % (AUTO) 13.3 % (21.0-51.0); MEAN CORPUSCULAR VOLUME 90.7 fL (80.0-100.0); MEAN PLATELET VOLUME 7.5 fL (7.4-11.0); MONOCYTES # (AUTO) 0.6 x10^3/uL (0.3-0.8); MONOCYTES % (AUTO) 8.4 % (0.0-13.0); NEUTROPHILS # (AUTO) 5.7 x10^3/uL (2.2-4.8); NEUTROPHILS % (AUTO) 75.9 % (42.0-75.0); PLATELET COUNT 314 X10^3/uL (150.0-450.0); RED BLOOD COUNT 4.77 X10^6/uL (4.7-6.0); WHITE BLOOD COUNT 7.6 X10^3/uL (3.6-10.0)
[2021-05-10 13:22] LABS: ALANINE AMINOTRANSFERASE 22 Units/L (12-78); ALBUMIN 3.6 g/dL (3.4-5.0); ALKALINE PHOSPHATASE 78 Units/L (46-116); ASPARTATE AMINO TRANSFERASE 24 Units/L (15-37); BLOOD UREA NITROGEN 21 mg/dL (7-18); CALCIUM 8.7 mg/dL (8.5-10.1); CARBON DIOXIDE 25.4 mmol/L (21-32); CHLORIDE 103 mmol/L (98-107); CKMB % 2.2 % (<4); COR NA(FOR HYPERGLY) 138 mmol/L (136-145); CREATINE KINASE 177 Units/L (39-308); CREATINE KINASE MB 3.8 ng/mL (0-4.0); CREATININE 1.29 mg/dL (0.70-1.30); SODIUM 137 mmol/L (136-145); TOTAL PROTEIN 7.4 g/dL (6.4-8.2); TROPONIN I 0.09 ng/mL (0-1.5); eGFR NON BLACK RACES > 60 (>60)
[2021-05-10] MEDS ORDERED: LASIX IVP ONE (13:51)
[2021-05-10] MEDS: LASIX IVP ONE (13:59)
--- NOTE | 2021-05-10 14:18 | RAD ---
HISTORYSOB [place], COPD, CHF ANGIOPLASTYSTUDYCHEST, 1 VIEWCOMPARISONNoneFINDINGSThe trachea is midline. The cardiac silhouette is stably enlarged without overt signs of failure. Stable appearance of a multi lead left chest cardiac pacemaker. Chronic emphysematous changes. Diffuse bilateral patchy airspace disease. No significant pleural effusion or pneumothorax. The bony thorax is unremarkable.IMPRESSIONDiffuse bilateral patchy airspace disease. Recommend following to resolution.Electronically signed by: FIDE CAMP (May 10, 2021 14:16:21)
[2021-05-10 14:31] LABS: ABG ALLEN TEST POS; ABG BASE EXCESS -0.4 mmol/L (-2.0-2.0); ABG HCO3 22.3 mmol/L (22-26)
[2021-05-11 03:15] VITALS: BP 130/82
[2021-05-11] MEDS ORDERED: DUONEB 0.5 MG/3 MG (3 mL) NEB SCH (09:00)
--- NOTE | 2021-06-17 12:35 | DR.CARTERS ---
Short Stay Summary - Admission Date Date of Admission: 05/10/21 - Discharge Date Discharge Date: 05/11/21 - Admission Diagnoses (1) CHF (congestive heart failure) Status: Acute (2) Pericarditis Status: Acute (3) Acute dyspnea Status: Acute (4) Chest pain Status: Acute - Hospital Course Hospital Course: IS A 56 YEAR OLD PATIENT OF . HE PRESENTED TO THE ER WITH COMPLAINTS OF INCREASED SHORTNESS OF BREATH. HE REPORTED THAT SYMPTOMS STARTED 2 -3 DAYS PRIOR TO ARRIVAL AND HAD PROGRESSIVELY GOTTEN WORSE. HE ALSO ADMITTED TO CHEST PAIN AND A NON-PRODUCTIVE COUGH. HE DENIED FEVER OR DYSURIA. HIS PMH INCLUDES CHF, COPD, MO, CARDIAC STENTS. ON ARRIVAL TO THE ER, VITALS WERE 98.7-92-24-96%-128/92. LABS WERE OBTAINED. BUN 21, GLUCOSE 126, BUN 502. OTHERWISE, LABS WERE NORMAL. ABG WAS OBTAINED AND REVEALED: PH 7.480, PC02 30, P02 77, HC03 22.3, 02 SAT 96, BASE EXCESS -0.4, FI02 21.0. COVID-19 NEGATIVE. A CHEST XRAY WAS OBTAINED AND REVEALED: The trachea is midline. The cardiac silhouette is stably enlarged without overt signs of failure. Stable appearance of a multi lead left chest cardiac pacemaker. Chronic emphysematous changes. Diffuse bilateral patchy airspace disease. No significant pleural effusion or pneumothorax. The bony thorax is unremarkable. EKG REVEALED: SINUS RHYTHM WITH HR 93. IN THE ER, HE WAS GIVEN LASIX 40MG IV X 1 DOSE. HE WAS ADMITTED TO THE HOSPTIAL FOR FURTHER EVALUATION AND TREATMENT OF CHF, ACUTE PERICARDITIS, CHEST PAIN, SOB. HE WAS STARTED ON LASIX 40MG IV BID AND ALBUTEROL NEB TX BID. A REPEAT TROPONIN WAS OBTAINED AT 14:57 AND WAS WITHIN NORMAL LIMITS. NO CHANGES NOTED TO REPEAT EKGs. OTHERWISE, WE PLANNED TO FOLLOW UP WITH AM LABS AND CONTINUE TO MONITOR. AT APPROXIMATELY MIDNIGHT, PATIENT WAS FOUND TO BE SMOKING IN HIS HOSPITAL ROOM. WHEN PATIENT WAS TOLD THAT HE COULD NOT SMOKE INSIDE, PATIENT TOLD NURSE THAT HE WANTED TO SIGN OUT AMS. NURSE ATTEMPTED TO CONVINCE PATIENT TO STAY, BUT PATIENT REFUSED. PATIENT SIGNED AMA FORM AND LEFT THE HOSPITAL WITH FAMILY IN STABLE CONDITION. TIME SPENT ON CLINICAL ASSESSMENT, REVIEWING LABS AND IMAGING, DECISION MAKING, DISCHARGE INSTRUCTIONS, PREPARING DISCHARGE PAPERS, AND DOCUMENTATION GREATER THAN 75 MINUTES. - Discharge Medications Discharge Medications: Prescriptions: - Discharge Plan Disposition: 07 AGAINST MEDICAL ADVICE Condition: Stable - Follow up/Referrals Follow up/Referrals: Danitza Santana [Primary Care Provider] - 1 WEEK - Instructions
== END 2021-05-11 00:43 | disposition left against medical advice (07) | DRG 292 ==
LOC: ER 11:05 → OBS 18:00
PROVIDERS: ADMIT Internal Medicine; ATTEND Internal Medicine
DX: I50.9 Heart failure, unspecified; Z20.822 Contact with and (suspected) exposure to COVID-19; Z53.29 Procedure and treatment not carried out because of patient's decision for other reasons; Z95.0 Presence of cardiac pacemaker; R07.89 Other chest pain; R06.02 Shortness of breath; J44.9 Chronic obstructive pulmonary disease, unspecified; R94.31 Abnormal electrocardiogram [ECG] [EKG]; I30.9 Acute pericarditis, unspecified; R06.09 Other forms of dyspnea